=== PATIENT | female | born 1995 | race Caucasian/White ===

== ENCOUNTER 2017-10-03 10:00 | Emergency (ER) | payer OTHER ==
--- NOTE | 2017-10-03 10:37 | EDPHYS ---
Physician Documentation [facility] Name: Cyndi Gonzales Age: 22 yrs Sex: Female : 1995 Arrival Date: 10/03/2017 Time: 10:01 Bed 10 Private MD: ED Physician Archie Garcia HPI: 10/03 10:34 This 22 yrs old Female presents to ER via Unassigned with complaints of Ear rn Pain. 10:34 The patient presents with pain. The complaints affect the right ear. Onset: The rn symptoms/episode began/occurred 2 week(s) ago. Severity of symptoms: At their worst the symptoms were moderate in the emergency department the symptoms are unchanged. The patient has not experienced similar symptoms in the past. The patient has been recently seen by a physician:. Reports right ear pain, no drainage, given abx drops by her TRANSFER CLERK, not helping, no fever, + congestion and drainage.. 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 - Social history:: Smoking status: unknown. - Family history:: not pertinent. - Hospitalizations: : No recent hospitalization is reported. ROS: 10:34 Constitutional: Negative for fever, chills, and weight loss, Eyes: Negative for injury, rn pain, redness, and discharge, ENT: + right ear pain Neck: Negative for injury, pain, and swelling, Cardiovascular: Negative for chest pain, palpitations, and edema, Respiratory: Negative for shortness of breath, cough, wheezing, and pleuritic chest pain, Abdomen/GI: Negative for abdominal pain, nausea, vomiting, diarrhea, and constipation, Neuro: Negative for headache, weakness, numbness, tingling, and seizure. Exam: 10:34 Constitutional: This is a well developed, well nourished patient who is awake, alert, rn and in no acute distress. Head/Face: Normocephalic, atraumatic. Eyes: Pupils equal round and reactive to light, extra-ocular motions intact. Lids and lashes normal. Conjunctiva and sclera are non-icteric and not injected. Cornea within normal limits. Periorbital areas with no swelling, redness, or edema. ENT: right external canal with mild swelling, no drainage, + moderate amount of cerumen, no evidence of perforation. Vital Signs: 10:18 BP 112 / 77; Pulse 81; Resp 16; Temp 98.2; Pulse Ox 100% on R/A; Weight 65.77 kg; iw Height 5 ft. 9 in. (175.26 cm); Pain 5/10; 10:18 Body Mass Index 21.41 (65.77 kg, 175.26 cm) iw MDM: 10:12 Patient medically screened. rn 10:34 Differential diagnosis: otitis media, otitis externa, acute otalgia, cerumen impaction. rn Data reviewed: vital signs, nurses notes, and as a result, I will discharge patient. Counseling: I had a detailed discussion with the patient and/or guardian regarding: the historical points, exam findings, and any diagnostic results supporting the discharge/admit diagnosis, the need for outpatient follow up, to return to the emergency department if symptoms worsen or persist or if there are any questions or concerns that arise at home. Special discussion: I discussed with the patient/guardian in detail that at this point there is no indication for admission to the hospital. It is understood, however, that if the symptoms persist or worsen the patient needs to return immediately for re-evaluation. Based on the history and exam findings, there is no indication for further emergent testing or inpatient evaluation. I discussed with the patient/guardian the need to see the ENT specialist for further evaluation of the symptoms. Administered Medications: No medications were administered Disposition: 10/03/17 10:36 Discharged to Home. Impression: Otalgia, right ear, Impacted cerumen, right ear. - Condition is Stable. - Discharge Instructions: Cerumen Impaction, Earache. - Prescriptions for Augmentin 875- 125 mg Oral Tablet - take 1 tablet by ORAL route every 12 hours for 10 days; 20 tablet. - Medication Reconciliation Form, Thank You Letter, Antibiotic Education, Prescription Opioid Use form. - Follow up: Nadine Viramontes MD; When: As needed; Reason: Recheck today's complaints, Re-evaluation by your physician. - Problem is an ongoing problem. - Symptoms are unchanged. Signatures: Maritza Horton RN RN iw Garcia, Archie, MD MD rn
--- NOTE | 2017-10-03 10:37 | ER ---
Nurse's Notes [facility] Name: Cyndi Gonzales Age: 22 yrs Sex: Female : 1995 Arrival Date: 10/03/2017 Time: 10:01 Bed 10 Private MD: Diagnosis: Otalgia, right ear;Impacted cerumen, right ear Presentation: 10/03 10:16 Presenting complaint: Patient states: has been on Neomycin ear drops for right ear iw infection X 1 week, pain has not improved, denies fever, also feels congested. 10:17 Acuity: JIM 5 iw 10:17 Transition of care: patient was not received from another setting of care. Initial iw Sepsis Screen: Does the patient meet any 2 criteria? No. Patient's initial sepsis screen is negative. Does the patient have a suspected source of infection? No. Patient initial sepsis screen negative. Onset of symptoms was October 03, 2017. Care prior to arrival: None. 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 - Social history:: Smoking status: unknown. - Family history:: not pertinent. - Hospitalizations: : No recent hospitalization is reported. Screenin:19 Abuse screen: Denies threats or abuse. Denies injuries from another. Nutritional iw screening: No deficits noted. Tuberculosis screening: No symptoms or risk factors identified. Fall Risk None identified. Assessment: 10:18 General: Appears in no apparent distress. Behavior is calm, cooperative. Pain: iw Complains of pain in right ear. Neuro: Level of Consciousness is awake, alert, obeys commands, Oriented to person, place, time, situation, Moves all extremities. Full function. Cardiovascular: Patient's skin is warm and dry. Respiratory: Respiratory effort is even, unlabored, Respiratory pattern is regular, symmetrical. EENT: Derm: Skin is pink, warm \T\ dry. normal. Musculoskeletal: Range of motion: intact in all extremities. Vital Signs: 10:18 BP 112 / 77; Pulse 81; Resp 16; Temp 98.2; Pulse Ox 100% on R/A; Weight 65.77 kg; iw Height 5 ft. 9 in. (175.26 cm); Pain 5/10; 10:18 Body Mass Index 21.41 (65.77 kg, 175.26 cm) iw ED Course: 10:01 Patient arrived in ED. as 10:12 Archie Garcia MD is Attending Physician. rn 10:16 Maritza Horton RN is Primary Nurse. iw 10:18 Arm band placed on. iw 10:19 Patient has correct armband on for positive identification. iw 10:19 No provider procedures requiring assistance completed. Patient did not have IV access iw during this emergency room visit. 10:36 Nadine Viramontes MD is Referral Physician. rn 10:54 Triage completed. iw Administered Medications: No medications were administered Outcome: 10:36 Discharge ordered by . rn 10:53 Discharged to home ambulatory. iw 10:53 Condition: good 10:53 Discharge instructions given to patient, Instructed on discharge instructions, follow up and referral plans. Demonstrated understanding of instructions, follow-up care, medications, Prescriptions given X 1. 10:54 Patient left the ED. iw Signatures: Olivia Viera as Maritza Horton, RN RN iw Archie Garcia MD MD rn
[2017-10-03 11:09] VITALS: BP 112/77; TEMP 98.2; O2SAT 100
== END 2017-10-03 10:54 | disposition home or self-care (01) ==
LOC: ER 10:00
DX: H61.21 Impacted cerumen, right ear (principal)
CPT/HCPCS: 99282